=== PATIENT | female | born 1980 | race Caucasian/White ===

== ENCOUNTER 2019-07-06 01:00 | Emergency (ER) | payer MEDICAID ==
[~2019-07-06] VITALS: Ht 167.6 cm; Wt 142.9 kg
--- NOTE | 2019-07-06 08:04 | EKG ---
[facility] [address] [facility] [place], [place] [address] Signed Sinus tachycardia with short VA Low voltage QRS Incomplete right bundle branch block Left anterior fascicular block Possible Lateral infarct , age undetermined Abnormal ECG No previous ECGs available Confirmed by VIANEY FUENTES MD ([id number] on 07/06/2019 8:04:13 AM Electronically Signed By: VIANEY FUENTES MD 07/06/19 0804 PATIENT NAME: CAL ANDREA SISSY Electrocardiogram DATE OF : 84 PHYSICIAN: VIANEY FUENTES MD REPORT #: [id number] REPORT IS CONFIDENTIAL AND NOT TO BE RELEASED WITHOUT AUTHORIZATION
== END 2019-07-06 04:53 | disposition home or self-care (01) ==
LOC: ED 01:00
DX: N83.209 Unspecified ovarian cyst, unspecified side (principal)
CPT/HCPCS: 74177; 80053; 81001; 83690; 83735; 84703; 85025; 85027; 93005; 93010; 99284-25; J1885; J2405; J7030; Q9967